=== PATIENT | female | born 1990 | race Caucasian/White ===

== ENCOUNTER 2023-02-24 17:54 | Inpatient (IN) | payer OTHER ==
[~2023-02-24] VITALS: Ht 162.6 cm; Wt 137.8 kg
--- NOTE | ~2023-02-24 | DS ---
[facility] [address] [place], [place] [address] Draft ADMISSION DATE: 02/26/2023 DISCHARGE DATE: 02/28/2023 REASON FOR ADMISSION: This morbidly obese 32-year-old white woman is accompanied by her . She presented to the emergency room and was evaluated late in the night by Dr. Goins and found to have tenderness at the umbilicus and non-reducible hernia. CT scan showed incarcerated fat at the umbilicus itself consistent with an incarcerated umbilical hernia. She had market tenderness, swelling and edema. She presented with subsided, but she still had nausea. She was noted to have an elevated white count of 13.3 and a urinalysis showing 12-20 rbc's in the urine, white cells 2-3 and squames 2+. She is admitted for further evaluation and care for incarcerated umbilical hernia as well as incidental finding of likely urinary tract infection. PERTINENT PHYSICAL EXAMINATION: GENERAL: Showed a morbidly obese white woman, who did not look systemically toxic. VITAL SIGNS: Showed a temperature 98.1, pulse 63, blood pressure 123/78. CHEST: Shows normal respiratory excursion. She did not have active wheezing. HEART: Regular without murmur. ABDOMEN: Obese, but soft. There is obvious umbilical hernia. There is marked tenderness on palpation, but no sign of cutaneous erythema. LABORATORY STUDIES: Showed a white count following morning of 8.9, hematocrit 39.4, platelets 234,000. Electrolytes normal. Beta HCG negative. Serology negative for COVID disease and urinalysis as previously noted suggestive of urinary tract infection. HOSPITAL COURSE: The patient was fluid resuscitated, given intravenous antibiotics on the basis of her probable urinary tract infection and underwent a late in the day on February 25 repair of incarcerated umbilical hernia. She was noted to have ischemic omentum, but was not infarcted. Repair consisted of excision of the herniated portion of omentum, closure of the hernia sac and implantation of Prolene mesh in an underlay technique with transverse closure of the fascia itself. At the time of extubation, she had a considerable amount of coughing and this likely related to her underlying extreme vaping habits as well as secondhand smoke, morbid obesity and of course distant history of asthma. She was surprisingly hypoxemic in the recovery room area, was given Decadron steroids by the core sucker, Gilberto Daniel. A chest x-ray, which was normal, but she did require a PATIENT NAME: JENNIFER RAYMOND DISCHARGE SUMMARY DATE OF : [birth year] REPORT #: [id number] PHYSICIAN: JONNA PARADA MD PCP: NO PRIMARY CARE PHYSICIAN REPORT IS CONFIDENTIAL AND NOT TO BE RELEASED WITHOUT AUTHORIZATION [facility] [address] [place], [place] [address] Draft non-rebreathing mask. She was transferred to the intensive care unit with postoperative hypoxemia. Consultation was undertaken with Dr. Perez, hospitalist, and additional support measures employed including at least one episode of diuresis with Lasix and supportive care. She did have a CPAP device, which was quite helpful to her. A CT scan was obtained at the request of Dr. Perez to assess for pulmonary embolism; there was no evidence of pulmonary embolism, but bilateral infiltrative changes likely accounting for her issue. She had no sign of pneumothorax or effusion. It was ultimately considered likely she had a so-called "negative pressure pulmonary edema," specifically with forced inspiration against a closed glottis at the time of extubation. She is maintained with supportive care primarily with full monitoring in the intensive care unit with supplemental oxygen, which was rapidly weaned down. By day of discharge, she is ambulating well, tolerating a regular diet, has minimal incisional pain and O2 saturations in the mid 90s on room air. She was noted to have some decreased saturations with deep sleep and she is considered likely to have probable obstructive sleep apnea in addition to what has gone before. The issue of asthma combined with the recent phenomena as well as ongoing vaping and exposure to secondhand tobacco smoke all could have contributed to the pulmonary issue. She is advised at discharge to lift no more than 10 pounds for the next four weeks. She will see me back in 4-6 weeks in the office and call on Wednesday to set up an appointment. She is permitted to shower. She will keep Steri-Strips on. No drain was placed. Therefore, none removed. DISCHARGE MEDICATIONS: Will include: 1. Ibuprofen 600 mg p.o. q.6 hours p.r.n. pain #30. 2. Percocet 7.5/325, one to two p.o. q.6 hours p.r.n. pain. 3. Tylenol plain 500 mg two tablets p.o. q.6 hours as needed for pain #60, no refill. Additionally, we will send home with a short duration antibiotic levofloxacin 500 mg p.o. daily on the basis of presumed urinary tract infection. Jonna Parada MD PATIENT NAME: JENNIFER RAYMOND DISCHARGE SUMMARY DATE OF : [birth year] REPORT #: [id number] PHYSICIAN: JONNA PARADA MD PCP: NO PRIMARY CARE PHYSICIAN REPORT IS CONFIDENTIAL AND NOT TO BE RELEASED WITHOUT AUTHORIZATION [facility] [address] [facility] [place] [address] Draft /JESSY /[id number] cc: MD Lokesh Steele MD [facility] Copies: ~ PATIENT NAME: JENNIFER RAYMOND DISCHARGE SUMMARY DATE OF : [birth year] REPORT #: [id number] PHYSICIAN: JONNA PARADA MD PCP: NO PRIMARY CARE PHYSICIAN REPORT IS CONFIDENTIAL AND NOT TO BE RELEASED WITHOUT AUTHORIZATION
[2023-02-24 19:52] LABS: BASOPHILS 0.2 % (0-2); EOSINOPHILS 0.4 % (0-6); HEMATOCRIT 43.4 % (35.0-50.0); HEMOGLOBIN 14.6 g/dL (12.0-18.0); LYMPHOCYTES 10.6 % (24-44); MCH 30.8 (27-36); MCHC 33.6 g/dl (30-36); MCV 91.8 fl (81-99); MONOCYTES 4.1 % (0-12); NEUTROPHILS 84.7 % (39-80); PLATELET COUNT 253 K/uL (140-440); RBC 4.73 M/ul (4.3-5.7); RDW 13.1 (10.5-15.0)
[2023-02-24 20:06] LABS: BILIRUBIN, TOTAL 0.3 ng/dL (0.2-1.0); BUN/CREATININE RATIO 13.68 (6.0-28.6); CALCIUM 9.5 mg/dL (8.5-10.1); CREATININE, SERUM 0.95 mg/dL (0.55-1.02)
[2023-02-24 20:34] LABS: BILIRUBIN, URINE NEGATIVE (negative); BLOOD/HGB, URINE MODERATE (Negative); KETONE, URINE NEGATIVE (Negative); LEUK ESTERASE, URINE NEGATIVE (negative); NITRITE, URINE NEGATIVE (negative)
[2023-02-24 20:39] LABS: EPITHELIAL CELLS, URINE SQUAMOUS 2+ /lpf (0-1+)
[2023-02-24 20:40] LABS: BACTERIA, URINE 3+ /hpf (negative); CASTS, URINE NONE SEEN \\lpf; CRYSTALS, URINE NONE SEEN (0-1+); REFLEX CULTURE, URINE No (No)
[2023-02-24 22:13] VITALS: BP 152/74
--- NOTE | 2023-02-24 22:15 | NUR ---
PT ADMITTED TO FLOOR FROM ER WITH A PERIUNBILICAL HERNIA WITH DR. PARADA. PT IS SCHEDULED TO HAVE SURGERY TOMORROW (02/25/23). PT NPO. REPORT RECEIVED AT BEDSIDE FROM OLDER ADULT SOCIAL WORK SPECIALIST. PT STABLE AT THIS TIME. BOWEL SOUNDS ARE HYPOACTIVE. VSS. PT INDEPENDENT IN ROOM. SAFETY PRECAUTIONS MAINTAINED. CALL LIGHT WITHIN REACH. WILL CONTINUE TO MONITOR.
[2023-02-25] VITALS (7 sets, daily range): BP systolic 115–129; BP diastolic 54–79
[2023-02-25 05:16] LABS: HEMOGLOBIN 13.2 g/dL (12.0-18.0)
[2023-02-25 05:18] LABS: BASOPHILS 0.7 % (0-2); EOSINOPHILS 0.9 % (0-6); HEMATOCRIT 39.4 % (35.0-50.0); LYMPHOCYTES 18.8 % (24-44); MCHC 33.6 g/dl (30-36); MCV 92.5 fl (81-99); MONOCYTES 5.8 % (0-12); NEUTROPHILS 73.8 % (39-80); PLATELET COUNT 234 K/uL (140-440); RBC 4.26 M/ul (4.3-5.7); RDW 13.1 (10.5-15.0)
[2023-02-25 05:31] LABS: ALBUMIN 3.3 g/dL (3.4-5.0); ALBUMIN/GLOBULIN RATIO 0.92 (1.1-2.4); ANION GAP 9.9 (7-21); BILIRUBIN, TOTAL 0.4 ng/dL (0.2-1.0); BUN/CREATININE RATIO 12.08 (6.0-28.6); CALCIUM 8.9 mg/dL (8.5-10.1); CREATININE, SERUM 0.91 mg/dL (0.55-1.02); MAGNESIUM 1.9 mg/dL (1.8-2.4); POTASSIUM 3.9 mmol/L (3.5-5.1); PROTEIN, TOTAL 6.9 g/dL (6.4-8.2)
--- NOTE | 2023-02-25 06:29 | NUR ---
PT RESTED WELL DURING THE SHIFT. PT DENIED ANY PAIN. PT WAS NAUSEOUS ONE TIME, ZOFRAN GIVEN. VSS. PT ABLE TO AMBULATE TO BATHROOM WITH GOOD OUPUT NOTED. PT NPO IN PREPARATION FOR HERNIA REPAIR TODAY. SAFETY PRECAUTIONS MAINTAINED. CALL LIGHT WITHIN REACH. WILL CONTINUE TO MONITOR.
--- NOTE | 2023-02-25 07:10 | NUR ---
REPORT RECEIVED FROM JESSA HUNT. PT RESTING IN BED ON RIGHT SIDE. EYES CLOSED RR EVEN AND UNLABORED. NO NEEDS IDENTIFIED AT THIS TIME. CALL LIGHT IN REACH.
--- NOTE | 2023-02-25 09:21 | NUR ---
IN TO ROUND ON PT. PT UP IN RECLINER. IV PUMP ALARMING, RESOLVED. IV FLUSHES WNL. ASSESSMENT COMPLETE. LUNG SOUNDS CLEAR. BOWEL TONES ACTIVE. PT REPORTS ABD TENDERNESS WITH PALPATION TO MID UPPER ABD. PT DENIES PAIN OTHERWISE. PT DENIES NUMBNESS OR TINGLING AT THIS TIME. PEDAL PULSES PALPABLE. PT DENIES ANY NEEDS AT THIS TIME. CALL LIGHT IN REACH. FAMILY IN ROOM.
--- NOTE | 2023-02-25 09:35 | NUR ---
patient sitting up in chair, family in room. vitals darshan&os charted. room tidied.
--- NOTE | 2023-02-25 10:09 | NUR ---
PT SITTING UP IN CHAIR. ON COUCH. EXERCISED MINISTRY. CONSENTED TO PRAYER. PRAYED FOR ONGOING HEALING AND CONTINUED BLESSING.
--- NOTE | 2023-02-25 10:16 | NUR ---
IN TO ROUND ON PT. PT UP IN RECLINER. PT ON PHONE. PROVIDED PT A CUP WITH NAME FRONT ATTENDANT IT TO PLACE HUSEYINLERY IN. PT VERBALIZES UNDERSTANDING. PT DENIES ANY OTHER NEEDS AT THIS TIME. CALL LIGHT IN REACH.
--- NOTE | 2023-02-25 10:34 | NUR ---
IN TO ANSWER CALL LIGHT. IV PUMP ALARMING, RESOLVED. ASSISTED PT WITH REMOVING EARRING. PT DENIES ANY OTHER NEEDS AT THIS TIME. CALL LIGHT IN REACH.
--- NOTE | 2023-02-25 11:39 | NUR ---
IN TO ROUND ON PT. PT UP IN RECLINER. PT DENIES ANY NEEDS AT THIS TIME. CALL LIGHT IN REACH.
--- NOTE | 2023-02-25 12:05 | NUR ---
MED REC COMPLETE
--- NOTE | 2023-02-25 12:15 | NUR ---
IN WITH DR. PARADA. DR. PARADA DISCUSSES PROCEDURE WITH PT. PT DENIES ANY NEEDS AT THIS TIME. CALL LIGHT IN REACH. PT UP IN BED. AT BEDSIDE.
--- NOTE | 2023-02-25 15:08 | NUR ---
IN TO ANSWER CALL LIGHT. IV PUMP ALARMING, NEW BAG OF FLUIDS STARTED, SEE MAR. ASSESSMENT COMPLETE. LUNG SOUNDS CLEAR. BOWEL TONES ACTIVE. PT REPORTS ABD TENDERNESS WITH PALPATION. PT DENIES PAIN OTHERWISE. PT DENIES ANY OTHER NEEDS AT THIS TIME. CALL LIGHT IN REACH.
--- NOTE | 2023-02-25 15:45 | NUR ---
Spoke with pt. She states she moved here from [place] two weeks ago. She is living in a camp trailer with her spouse. He is off work with [employer]. He will assist her as needed. They both drive. Pt in need of insurance, pcp, and pharmacy. Per pt she will have surgery tonight and possibly go home. She does not use any DME. She and spouse split recruitment consultant, shopping, and cooking. I will contact Aubree in Eligibility to assist pt with the [place] [employer], sent CM form to the physician clinic requesting a PCP as requested by pt, she would like to use [facility] for her pharmacy. Pt thinks she may go home tonight. She denies other needs or concerns.
--- NOTE | 2023-02-25 16:20 | NUR ---
PAIENTS PRESURGICAL [place]IPEDOWN COMPLETE, PATIENT ASSISTING. IN ROOM.
--- NOTE | 2023-02-25 16:35 | NUR ---
Chart emailed to the physician clinic for fu appt. Spoke with pt and Aubree was able to see her from eligibility.
[2023-02-25 21:44] LABS: BASOPHILS 0.4 % (0-2); EOSINOPHILS 0.1 % (0-6); HEMATOCRIT 44.3 % (35.0-50.0); HEMOGLOBIN 14.8 g/dL (12.0-18.0); LYMPHOCYTES 5.4 % (24-44); MCH 31.1 (27-36); MCHC 33.4 g/dl (30-36); MCV 93.1 fl (81-99); MONOCYTES 1.4 % (0-12); NEUTROPHILS 92.7 % (39-80); PLATELET COUNT 239 K/uL (140-440); RBC 4.76 M/ul (4.3-5.7); RDW 13.2 (10.5-15.0)
[2023-02-25 21:57] LABS: ALBUMIN 3.6 g/dL (3.4-5.0); ALBUMIN/GLOBULIN RATIO 0.9 (1.1-2.4); ANION GAP 12.8 (7-21); BILIRUBIN, TOTAL 0.6 ng/dL (0.2-1.0); BUN/CREATININE RATIO 12.38 (6.0-28.6); CALCIUM 9.1 mg/dL (8.5-10.1); CREATININE, SERUM 1.05 mg/dL (0.55-1.02); POTASSIUM 3.8 mmol/L (3.5-5.1); PROTEIN, TOTAL 7.6 g/dL (6.4-8.2)
--- NOTE | 2023-02-25 22:00 | NUR ---
PT ARRIVED TO FLOOR AROUND 2200 VIA WC, BONDERITE OPERATOR GAVE REPORT AT [facility], UMBILICAL INCISION IS DRESSED AND OVERED, DRESSING IS C/D/I, ABDOMEN IS SOFT AND TENDER, BT HYPOACTIVE, PT IS A&O, PT WALKED TO BED FROM , STEADY GAIT, SBA, PT STATES THAT PAIN IS 6/10 BUT TOLERABLE FOR HER, SHE IS CURRENTLY ON BIPAP, RT IN ROOM AND WILL TITRATE DOWN O2 PER PT NEEDS/TOLERABILITY, PT CURRENTLY SATING 100% AND TOLERATING BIPAP WELL, HOSPITALIST AND SURGEON WERE AT [facility] AND BOTH SPOKE WITH , CALL LIGHT WITHIN REACH AND CONTINUOUS MONITORING, WILL NOTIFY MD WITH ANY CHANGES IN PT STATUS
--- NOTE | 2023-02-25 22:43 | NUR ---
02/25/23 2243 Flori Potter 193- PT ARRIVES TO UNIT VIA STRETCHER FROM OR. STEFFEN JUAREZ AND 3 RN'S AT BEDSIDE. PT IS A&O AND ON 10L OF O2 VIA MASK. RESPIRATIONS ARE SHALLOW BUT EVEN AND UNLABORED. O2 <90% AT THIS TIME, PT ENCOURAGED TO TAKE DEEP BREATHS AND COUGH. PT COUGHS RED SPUTUM THAT IS SPAT UP INTO YANKAUER SUCTION. 1931- PT ON NRB MASK AT 10L OF O2 AND REPOSITIONED W/TEACHER INSTRUMENTAL AND 3 RN'S AT BEDSIDE FOR ASSIST. HOB RAISED TO 45 DEGREES AND PILLOW PROVIDED FOR STABILIZATION OF SURGICAL SITE WITH COUGHING, PT STATES VERBAL UNDERSTANDING AND FOLLOWS DIRECTION. PT REPORTS 10/10 PAIN AT THIS TIME BUT O2 <90%. 1933- STEFFEN JUAREZ PROVIDES PAIN MED (SEE BLUE SHEET). PT O2 >90% AT THIS TIME VIA 10L OF O2 VIA NRB MASK. PT RESPIRATIONS REMAIN SHALLOW BUT UNLABORED, NO SIGNS OF DISTRESS. PT REMAINS A&O. STATES SHE IS HOT AND SWEATY AT THIS TIME, COLD WASH CLOTH PROVIDED FOR PT COMFORT. 1937- PT EDUCATED ABOUT IMPORTANCE OF GOOD COUGHS AND ABDOMINAL SUPPORT, PT STATES VERBAL UNDERSTANDING AND CONTINUES TO COUGH AND TAKE DEEP BREATHS DIRECTED. 1943- TEACHER INSTRUMENTAL AT BEDSIDE FOR EDUCATION REGARDING PERSONAL LIFESTYLE CHOICES THAT MAY REFLECT LUNG CONDITION. PT CONTINUES TO COUGH UP BLOODY SPUTUM IN SMALL AMOUNTS AND SPIT IN SUCTION AT THIS TIME. PT REPORTS PAIN HAS NOT DECREASED. PT O2 MAINTAINS >90% AT THIS TIME VIA CONTINUOUS PULSE OX. 1949- STEFFEN JUAREZ AT BEDSIDE FOR BILAT TAP BLOCKS FOR PAIN CONTROL. 1999- STEVEN MALOUER IN PLACE D/T PT DIAPHORETIC AND HOT AT THIS TIME. PT STATES NO CHEST PAIN, DIZZINESS, OR SOB AT THIS TIME. RESPIRATIONS SHALLOW AND UNLABORED, NO SIGNS OF DISTRESS. 2003- PT O2 <90% AT THIS TIME, PT TITRATED FROM 10L OF O2 VIA NRB MASK TO 12L OF O2 VIA NRB MASK. O2 >90% VIA CONT PULSE OX AT THIS TIME. PT STATES PAIN IS DECREASING TO TOLERABLE LEVEL AT THIS TIME. PT HOB REMAINS ELEVATED. IV SITE WNL. SURGICAL SITE DRESSING HAS NO DRAINAGE AT THIS TIME. 2018- PT TITRATED TO 10L OF O2 VIA NRB FROM 12L OF O2 VIA NRB D/T O2 SATS >90% AT THIS TIME. PT CONTINUES TO COUGH AND DEEP BREATH W/OUT DIFFICULTY. PT REMAINS A&O. 2024- PT TITRATED TO 10L OF O2 VIA MASK FROM 10L OF O2 VIA NRB MASK. PT MAINTAINS >90% VIA CONTINUOUS PULSE OX AT THIS TIME. PT REPORTS PAIN IMPROVED TO A 7/10. O2 >90% AT THIS TIME. RESPIRATIONS EVEN AND UNLABORED, NO SIGNS OF PHYSICAL DISTRESS. 2029- VERBAL ORDER FOR DUONEB PER STEFFEN TEACHER INSTRUMENTAL. 2033- PT TITRATED TO 8L OF O2 VIA MASK D/T MAINTAINING O2 >90% AT THIS TIME. DUONEB VIA MASK (SEE EMAR). 2034- PT TITRATED BACK TO 10L OF O2 VIA MASK D/T O2 VIA PULSE OX <90% AT THIS TIME. PT IS A&O AND CONTINUES TO COUGH AND TAKE DEEP BREATHS. PT REPORTS PAIN HAS DECREASED TO 6/10 AND STATES THIS IS TOLERABLE AT THIS TIME. 2037- PT TITRATED TO 12L OF O2 VIA NRB MASK D/T O2 SATS DROPPING TO 80'S. RESPIRATIONS EVEN AND UNLABORED. PT REPORTS NO CHEST PAIN, DIZZINESS, OR SOB. PT CONTINUES TO TAKE DEEP BREATHS AND COUGH (BLOOD TINGED SPUTUM OF SMALL AMOUNTS). 2043- PT TITRATED TO 10L OF O2 VIA NRB D/T O2 SATS >90% AT THIS TIME. IMAGING AT BEDSIDE AT THIS TIME FOR CHEST XRAY ORDERED PER STEFFEN TEACHER INSTRUMENTAL.
[2023-02-26] VITALS (7 sets, daily range): BP systolic 100–127; BP diastolic 46–76
--- NOTE | 2023-02-26 | NUR ---
PT CALLED RN TO VOID, PT GOT UP TO BSC W/ SBA, HAD CONTINUOUS PULSE OX ON AND OPEN MASK AT 15L, PT DESATED TO 86%, WHEN PT RETURNED TO BED OXYGEN SATURATION RETURNED TO 90%, BIPAP WAS PUT BACK ON, PT C/O SEVERE ABDOMINAL PAIN AND PRN PAIN MEDICATION WAS GIVEN PER ORDERS, CONTINUOUSLY MONITORING
--- NOTE | 2023-02-26 01:31 | NUR ---
PT CALLED TO USE BSC, OPEN MASK W/ 15L WAS PLACED ON PT AND PT GOT UP TO USE BSC, O2 STAYED IN THE 90S WHILE GETTING UP AND AMBULATING TO BSC, O2 SATURATION REMAINS IN THE MID 90S, PT REQUESTED TO KEEP OPEN MASK ON AND LEAVE BIPAP OFF, CONTINUALLY MONITORING 02 SATURATION
[2023-02-26 05:31] LABS: BASOPHILS 0.2 % (0-2); EOSINOPHILS 0.1 % (0-6); HEMATOCRIT 40.8 % (35.0-50.0); HEMOGLOBIN 13.8 g/dL (12.0-18.0); LYMPHOCYTES 2.8 % (24-44); MCHC 33.8 g/dl (30-36); MCV 91.7 fl (81-99); MONOCYTES 1.8 % (0-12); NEUTROPHILS 95.1 % (39-80); PLATELET COUNT 234 K/uL (140-440); RBC 4.45 M/ul (4.3-5.7)
[2023-02-26 05:48] LABS: ALBUMIN 3.3 g/dL (3.4-5.0); ALBUMIN/GLOBULIN RATIO 0.87 (1.1-2.4); ANION GAP 12.2 (7-21); BILIRUBIN, TOTAL 0.6 ng/dL (0.2-1.0); BUN/CREATININE RATIO 15.62 (6.0-28.6); CALCIUM 8.7 mg/dL (8.5-10.1); CREATININE, SERUM 0.96 mg/dL (0.55-1.02); POTASSIUM 4.2 mmol/L (3.5-5.1); PROTEIN, TOTAL 7.1 g/dL (6.4-8.2)
--- NOTE | 2023-02-26 06:49 | NUR ---
NO SIGNIFICANT CHANGES OVER BALLET MASTER/MISTRESS, PT REMAINS ON 15L OXYMASK, SATS IN THE MID 90'S, PT WAS UP TO BSC MULTIPLE TIMES, SAT REMAINED IN THE LOW 90S WHILE MOVING TO BSC ON 15L OXYMASK, LUNGS SOUND COARSE, PT DENIES SOB BUT DOES FEEL CONGESTED, WILL DISCUSS POSSIBLE DIURESIS WITH AND ANEL TO MONITOR
--- NOTE | 2023-02-26 07:30 | NUR ---
REPORT RECEIVED FORM KELLY GERMAIN. PT RESTING IN BED WITH EYES CLOSED, RESP EVEN AND UNLABORED, SPO2 99% ON 15L OXYMASK.
--- NOTE | 2023-02-26 08:07 | NUR ---
DR RODRIGUEZ IN TO SEE PT, PLAN FOR THE DAY DISCUSSED, WILL ATTEMPT TITRATING O2 DOWN. OXYGEN SWITCHED OVER TO A NASAL CANNULA AT 5L/MIN AND SATS 92-98%, WILL DIP DOWN TO 85% ON ROOM AIR. IS WITH INSTRUCTION GIVEN TO PT. ALSO STATES OKAY FOR PT TO EAT, REGULAR BREAKFAST TRAY PROVIDED.
--- NOTE | 2023-02-26 08:28 | NUR ---
PATIENT AWAKE IN BED, AT BEDSIDE. BREAKFAST TRAY PROVIDED. WASHCLOTH PROVIDED FOR FACE AND HANDS. VITALS CHARTED. CALL LIGHT IN EASY REACH
--- NOTE | 2023-02-26 09:46 | NUR ---
PT AND APPEAR TO BE SLEEPING. DID NOT DISTURB. SAID SILENT PRAYER FOR HEALING FROM DOORWAY.
--- NOTE | 2023-02-26 11:06 | NUR ---
DR PARADA IN ROOM TO DISCUSS PLAN WITH PT. PT CURRENTLY ON 5L/NC, TURNED DOWN TO 3L/NC.
--- NOTE | 2023-02-26 12:35 | NUR ---
PT UP TO BATHROOM SBA THEN TO CHAIR TO SIT UP FOR A WHILE. STEADY ON FEET AND MOVING WELL. OXYGEN AT 2L/NC WHILE UP AND SPO2 DOWN TO 85% DURING THIS TIME. BACK UP TO 93% ONCE PT SITTING IN CHAIR. DENIES NEED FOR ANY MORE PAIN MEDICATION, NO REQUESTS AT THIS TIME.
--- NOTE | 2023-02-26 12:49 | NUR ---
PATIENT AWAKE IN BED, EATING LUNCH. VITALS AND I&OS CHARTED. PATIENT INTO BR WITH SBA FOR VOID, PATIENT TOLERATED THIS ACTIVITY WELL, O2 IN MID 80S WHILE WALKING. PATIENT INTO CHAIR AT THIS TIME, CALL LIGHT AND PERSONAL ITEMS IN EASY REACH
--- NOTE | 2023-02-26 13:59 | NUR ---
PT REMAINS UP IN CHAIR WITH SPO 2 96% ON 2L/NC.
--- NOTE | 2023-02-26 15:30 | NUR ---
PT GIVEN PAIN MEDS PER REQUEST, RATES ABD PAIN 8/10, GIVEN TWO TABS PERCOCET.
--- NOTE | 2023-02-26 16:00 | NUR ---
O2 WAS TITRATED DOWN TO ROOM AIR, PT WAS SITTING IN CHAIR AND USING IS. PT TOLERATED ROOM AIR FOR APPROX 45 MINUTES. O2 SATS DROPPED DOWN 84-85%, PT CALLED THEN TO STATE SHE WAS FEELING SHORT OF BREATH, STATES SHE MAY HAVE BEEN OVER USING THE IS. PLACED PT BACK ON 3L/NC AND SATS UP TO 95%.
--- NOTE | 2023-02-26 16:30 | NUR ---
PTS BROUGHT HER DINNER IN, O2 TURNED DOWN TO 2L/NC SATS ARE 98%.
--- NOTE | 2023-02-26 17:30 | NUR ---
PT OUT FOR A WALK WITH THIS RN, 3L/NC IN PLACE WITH SATS 90%, PT DOES GET SLIGHTLY SHORT OF BREATH. DR PARADA IN TO SEE PT, DISCUSSED PLAN WITH PT FOR HER TO STAY AND GIVE HER LUNGS TIME TO HEAL.
--- NOTE | 2023-02-26 18:00 | NUR ---
PT UP TO SHOWER WITH O2/3L IN PLACE. SATS 90% WITH THIS ACTIVITY.
--- NOTE | 2023-02-26 19:54 | NUR ---
RECEIVED REPORT FROM JESSA LOWERY, PT HAS BEEN WEANED DOWN TO 2L NC FOR THE MAJORITY OF THE DAY, PT DOES DESAT INTO THE MID 80S WITH ACTIVITY ON RA, WILL CONTNIUE TO WEAN OXYGEN DOWN TOLERATED BY PT AND ACTIVITY; IS CURRENTLY AT BEDSIDE, PT IS A&O, DENIES PAIN AT THIS TIME, VSS, CONTINUING TO MONITOR; WILL NOTIFY MD OF ANY CHANGES IN PT STATUS
--- NOTE | 2023-02-27 06:00 | NUR ---
PT RESTED ON AND OFF, C/O ABD PAIN FROM COUGHING AND ACTIVITY, PRN PAIN MEDICATION GIVEN PER ORDERS, PT O2 SATURATION HAS REMAINED IN THE 90'S WHILE IN BED ON 1.5L NC, PT DOES DESAT INTO THE LOW TO MID 80'S WITH ACTIVITY BUT DOES RECOVER FAIRLY QUICKLY, DENIES SOB AT THIS TIME, CONTINUALLY MONITORING
[2023-02-27 06:25] VITALS: BP 115/61
[2023-02-27 06:39] LABS: BASOPHILS 0.6 % (0-2); EOSINOPHILS 0.4 % (0-6); HEMOGLOBIN 12.4 g/dL (12.0-18.0); LYMPHOCYTES 13.8 % (24-44); MCH 31.1 (27-36); MCHC 33.7 g/dl (30-36); MCV 92.3 fl (81-99); MONOCYTES 5.1 % (0-12); NEUTROPHILS 80.1 % (39-80); PLATELET COUNT 210 K/uL (140-440); RDW 13.3 (10.5-15.0)
[2023-02-27 06:59] LABS: ALBUMIN 3.1 g/dL (3.4-5.0); ALBUMIN/GLOBULIN RATIO 0.86 (1.1-2.4); ANION GAP 11.7 (7-21); BILIRUBIN, TOTAL 0.4 ng/dL (0.2-1.0); BUN/CREATININE RATIO 15.53 (6.0-28.6); CALCIUM 8.5 mg/dL (8.5-10.1); CREATININE, SERUM 1.03 mg/dL (0.55-1.02); POTASSIUM 3.7 mmol/L (3.5-5.1); PROTEIN, TOTAL 6.7 g/dL (6.4-8.2)
--- NOTE | 2023-02-27 07:30 | NUR ---
REPORT RECEIVED FROM KELLY GERMAIN. PT IS RESTING IN BED ON 1.5L/NC WITH SPO2 92-93% AND RR 18.
--- NOTE | 2023-02-27 07:30 | NUR ---
REPORT RECEIVED FROM KELLY GERMAIN. PT IS AWAKE IN BED, DR RODRIGUEZ IN TO SEE PT, PT ON 1.5L/O2 WITH SPO2 94% AT REST.
--- NOTE | 2023-02-27 07:45 | NUR ---
DR RODRIGUEZ IN TO SEE PT, ORDERS NEB TX, RT IN TO DO NEB TX.
--- NOTE | 2023-02-27 07:47 | NUR ---
RT CALLED FOR NEB TX
[2023-02-27 08:55] VITALS: BP 114/53
--- NOTE | 2023-02-27 09:13 | NUR ---
PT UP TO AMBULATE IN THE HALLWAYS, WALKED FOR APPROX 5 MINUTES. TRIED ROOM AIR INITIALLY AND O2 SATURATIONS DROPPED DOWN TO 83% ALTHOUGH PT DENIED FEELING SHORT OF BREATH. TURNED OXYGEN ON TO 4L/NC AND SATS UP TO 90% WITH ACTIVITY. PT BROUGHT BACK TO ROOM, STATES HER BREATHING FEELS FINE ALTHOUGH SHE DOES LOOK SLIGHTLY SHORT OF BREATH. SATS 90% ON 4L WITH THIS ACTIVITY. HAD PT REST AND RECOVER APPROX ONE MINUTE AND THEN PLACED HER BACK ON ROOM AIR, NOW ON ROOM AIR SITTING UP IN THE CHAIR PTS SATURATIONS ARE 90% WITH RESP RATE 18 AND UNLABORED. HEART RATE WENT FROM 70'S AT REST TO 100'S DURING AMBULATION THEN BACK DOWN TO 80'S ONCE IN CHAIR. PT DENIES NEED FOR PAIN MEDICAITON AT THIS TIME. DOING INCENTIVE SPIROMETRY INSTRUCTED. CALL LIGHT IN REACH.
--- NOTE | 2023-02-27 10:15 | NUR ---
PT BACK TO BED STATES SHE IS TIRED AND WANTING TO NAP.
--- NOTE | 2023-02-27 10:30 | NUR ---
DR PARADA CAME BY TO SEE PT, PLAN TO CONT TO MONITOR PT, STATUS CHANGED TO MED SURG.
--- NOTE | 2023-02-27 10:44 | OR ---
[facility] [address], [place] [address] Signed DATE OF OPERATION: 02/25/2023 SURGEON: Jonna Parada MD PREOPERATIVE DIAGNOSES: 1. Incarcerated umbilical hernia with edematous fat. 2. Morbid obesity. BMI 52.1. POSTOPERATIVE DIAGNOSES: 1. Incarcerated umbilical hernia with ischemic omentum. 2. Morbid obesity. BMI 52.1. PROCEDURES: 1. Repair of incarcerated umbilical hernia defect less than 4 cm. 2. Implantation of Prolene mesh underlay technique. 3. Partial omental resection. ANESTHESIA: General endotracheal, Gilberto Domínguez, SALES AND MARKETING INTERN and local 10 mL of 0.25% Marcaine with epinephrine. INDICATIONS: A 32-year-old, morbidly obese, BMI 52.1, white woman presented to the emergency room late last night, was evaluated by Dr. Goins with exquisite tenderness in the umbilical area. There was a clinical finding of hernia. Given her tenderness, a CT scan was obtained. This showed no evidence of incarcerated hollow viscus, but did show fat with possible ischemic changes and edema. The patient has been fluid resuscitated, given intravenous antibiotics, parenteral pain medication. So forth, she is now to undergo repair of the hernia and possible resection of the fat as appropriate. The risk of bleeding, infection, recurrent hernia, and other unforeseen complications were reviewed in detail. She understands as does her and they wish to proceed. FINDINGS: Indeed herniated fat was noted. It was ultimately found to be portion of omentum. It did require resection that was infarcted per se. Repair consisted of implantation of Prolene mesh in the properitoneal space after developing the properitoneal space and securing the peritoneum itself. Transverse reapproximation of fascial layer was undertaken with Prolene and Prolene pledgets. She tolerated procedure well overall. DESCRIPTION OF PROCEDURE: Electronically Signed By: JONNA PARADA MD 02/27/23 1044 PATIENT NAME: JENNIFER RAYMOND OPERATIVE REPORT DATE OF : [birth year] REPORT #: [id number] PHYSICIAN: JONNA PARADA MD PCP: NO PRIMARY CARE PHYSICIAN REPORT IS CONFIDENTIAL AND NOT TO BE RELEASED WITHOUT AUTHORIZATION [facility] [address], [place] [address] Signed The patient was brought to the operating room, given a general endotracheal anesthetic. Preoperative antibiotic, Ancef had been given. Sequential compression device stockings used and heparin subcutaneously administered. After satisfactory general endotracheal anesthesia, the abdomen was prepared with chlorhexidine solution and draped sterilely. A curvilinear incision was made to the left of the umbilicus. Dissection was carried through the dermis and subcutaneous tissue with both sharp and electrocautery dissection. The herniated fat was not reducible still at that point. The hernia sac was freed from the overlying dermis of the umbilical skin isolating the hernia itself. The defect appeared to be less than 4 cm. Circumferential dissection of the hernia sac was undertaken, ultimately was opened and found to have incarcerated omentum. There was no sign of hollow viscus. Excision of the omentum was undertaken as the inflammatory process was such that reduction was excessively cumbersome and meddlesome in the final analysis. This left a hernia sac that had been transected circumferentially. The hernia sac edges were secured and using blunt and electrocautery dissection, the properitoneal space was developed circumferentially around the fascial defect. The hernia sac remnants were reapproximated with running 2-0 Vicryl. A circular piece of Prolene mesh was then secured in the properitoneal space with interrupted 0 Prolene sutures covering the defect well with overlap of at least 2 to 3 cm. The fascia was then reapproximated transversely with interrupted 0 Prolene with Prolene pledgets. A 10 mL of 0.25% Marcaine with epinephrine was injected locally. Luzma's layer was reapproximated with interrupted 2-0 Vicryl and skin closed with running subcuticular 3-0 Vicryl. Steri-Strips were applied as was an Acticoat dressing. The patient anticipates transfer from the operating room to recovery room in good condition. Blood loss was minimal. Jonna Parada MD JM/MODL /[id number] cc: Dr. Buster Electronically Signed By: JONNA PARADA MD 02/27/23 1044 PATIENT NAME: JENNIFER RAYMOND OPERATIVE REPORT DATE OF : [birth year] REPORT #: [id number] PHYSICIAN: JONNA PARADA MD PCP: NO PRIMARY CARE PHYSICIAN REPORT IS CONFIDENTIAL AND NOT TO BE RELEASED WITHOUT AUTHORIZATION [address] [address] Signed Copies: ~ Electronically Signed By: JONNA PARADA MD 02/27/23 1044 PATIENT NAME: JENNIFER RAYMOND OPERATIVE REPORT DATE OF : [birth year] REPORT #: [id number] PHYSICIAN: JONNA PARADA MD PCP: NO PRIMARY CARE PHYSICIAN REPORT IS CONFIDENTIAL AND NOT TO BE RELEASED WITHOUT AUTHORIZATION
--- NOTE | 2023-02-27 10:44 | HP ---
[facility] [address] [place], [place] [address] Signed ADMISSION DATE: 02/24/2023 REASON FOR ADMISSION: Incarcerated umbilical hernia, very symptomatic. HISTORY OF PRESENT ILLNESS: This morbidly obese 32-year-old white woman is accompanied by her . She presented to the emergency room where she was evaluated last night by Dr. Goins. She was found to have tenderness at the umbilicus and a nonreducible hernia. She had several episodes of vomiting and sensation of tearing in the upper abdomen previous to this. Her vomiting had subsided but she still had nausea. She presented to the emergency room and upon evaluation was noted to have tenderness in the umbilical area. A normal urinalysis was noted, but an elevated white count of 13.3 was noted. Urinalysis showed rbc's 12 to 20 in urine, white cells 2 to 3, squames 2+. CT scan showed edema within the fat containing umbilical hernia and fat strangulation likely and mild inflammatory stranding within the mesentery was noted. There was no sign of incarcerated bowel or sign of bowel obstruction. I was called about this and given her symptoms, recommended direct admit to the hospital, anticipating operative intervention. Currently, she still has some tenderness, but not as bad as before. She has had no surgical intervention in the area. She denies any prior pregnancies. ALLERGIES: She is noted to have allergy to sulfa medication as well as Motrin and amoxicillin. SOCIAL HISTORY: She is accompanied by her . She has no children. They live in [place], neither are working. REVIEW OF SYSTEMS: She denies any shortness of breath or chest pain. She had no dysphagia or dysuria. Denies any hematemesis or blood per rectum. PHYSICAL EXAMINATION: GENERAL: Morbidly obese white woman, who does not look systemically toxic. VITAL SIGNS: Showed a temperature of 98.1, pulse of 63, blood pressure 123/78. NECK: Trachea is midline. CHEST: Shows normal respiratory excursion. HEART: Regular. Electronically Signed By: JONNA PARADA MD 02/27/23 1044 PATIENT NAME: JENNIFER RAYMOND HISTORY AND PHYSICAL DATE OF : [birth year] REPORT #: [id number] PHYSICIAN: JONNA PARADA MD PCP: NO PRIMARY CARE PHYSICIAN REPORT IS CONFIDENTIAL AND NOT TO BE RELEASED WITHOUT AUTHORIZATION [facility] [address] [place], [place] [address] Signed ABDOMEN: Quite obese, but soft. There is an obvious umbilical hernia. There is marked tenderness on palpation. There is no erythema. EXTREMITIES: Showed no clubbing, cyanosis, or edema. LAB STUDIES: This morning showed white count normal at 8.9, hematocrit 39.4, platelets 234,000. Electrolytes are normal. Beta HCG was negative yesterday. Serology shows negative COVID. Urinalysis as previously noted, rbc's 12 to 20 per high-power field, white cells 2 to 3, bacteria 3+, squames 2+. ASSESSMENT: The patient has probably incidental urinary tract infection, which is under treatment at this time. She does have what appears to be incarcerated properitoneal fat and an umbilical hernia which is relatively small in size. Operative intervention would be appropriate to fix the hernia, resect the fat if appropriate or reduce it otherwise. The risk of bleeding, infection, recurrent hernia, and so forth were reviewed in detail. This is particularly apt considering her significant morbid obesity. Her BMI is currently 52.1. She understands all this and agrees to our plan. MD PRADEEP Reina/JESSY /[id number] cc: Dr. Goins Copies: ~ Electronically Signed By: JONNA PARADA MD 02/27/23 1044 PATIENT NAME: JENNIFER RAYMOND HISTORY AND PHYSICAL DATE OF : [birth year] REPORT #: [id number] PHYSICIAN: JONNA PARADA MD PCP: NO PRIMARY CARE PHYSICIAN REPORT IS CONFIDENTIAL AND NOT TO BE RELEASED WITHOUT AUTHORIZATION
--- NOTE | 2023-02-27 12:20 | NUR ---
LUNCH BROUGHT IN TO PT BUT SHE STATES SHE IS TIRED AND WANTS TO SLEEP. HAD BROUGHT IN HER DOGS TO SEE HER FOR A SHORT TIME, SHE HAD GOTTEN UP AND SAT ON THE COUCH FOR A WHILE TO PET HER DOGS. PT WAS ON ROOM AIR WITH SATS 87-94%.
--- NOTE | 2023-02-27 14:00 | NUR ---
PT RESTING WITH EYES CLOSED, ON ROOM AIR WITH SPO2 88-94$.
--- NOTE | 2023-02-27 15:20 | NUR ---
PT C/O ABDOMINAL PAIN, 2 TABS PERCOCET GIVEN.
[2023-02-27 16:21] VITALS: BP 120/53
--- NOTE | 2023-02-27 16:45 | NUR ---
PT BEING GIVEN NEB TX BY RT, STATES SHE DOES FEEL BETTER AFTER SHE GETS THEM. SATS 92% ON ROOM AIR.
--- NOTE | 2023-02-27 18:00 | NUR ---
NEW IV STARTED BY ASSOCIATE MATERIAL HANDLER. PTS DINNER BROUGHT IN THEN SHE AMBULATED UP TO BATHROOM. SATS DOWN TO 85% WHILE UP THEN QUICKLY BACK TO 92 ONCE SHE IS SITTING. DENIES FEELING SHORT OF BREATH.
--- NOTE | 2023-02-27 20:00 | NUR ---
RECEIVED REPORT FROM JESSA LOWERY, ALL QUESTIONS AND CONCERNS WERE ADDRESSED AT THIS TIME, PT IS A&O, VSS, PT CURRENTLY ON 1L NC, PAIN IS BEING MANAGED WITH PRN MEDS, CONTINUALLY MONITORING
[2023-02-28 00:06] VITALS: BP 112/55
[2023-02-28 06:00] VITALS: BP 127/64
--- NOTE | 2023-02-28 06:56 | NUR ---
PT DID WELL OVER PATROL CONDUCTOR, NO SIGNIFICANT CHANGES, PT CURRENTLY ON RA SATING IN THE 'S, PT IS UP AND HOPEFUL THAT SHE WILL BE ABLE TO BE DISCHARGED TODAY
[2023-02-28 08:00] VITALS: BP 110/68
--- NOTE | 2023-02-28 10:04 | NUR ---
PT ASSESSED AND FOUND TO BE SITTING IN HOSPITAL CHAIR WITH AT SIDE. PT IS AWAKE, ALERT AND ORIENTED X 4 WITH A GCS OF 15. PT IS SPEAKING IN FULL SENTANCES WITH NO RESPIRATORY DISTRESS NOTED. PTS RESPIRATIONS ARE NON-LABORED AND PT IS ON ROOM AIR AT THIS TIME. PT DENIES ANY PAIN/ DISCOMFORT. V/S ASSESSED AND SAFETY CHECK PERFORMED. PIV ASSESSED AND FOUND TO BE PATENT. PT WITH INITIAL SURGICAL DRESSING IN PLACE. SKIN SURROUNDING DRESSING APEPARS PWD. SURGICAL DRESSING IS INTACT. EDUCATION REGARDING BREATHING EXERCISES AND WOUND CARE PROVIDED. PT WITH NO QUESTIONS OR CONCERNS AT THIS TIME. NURSE CALL LIGHT AT PTS SIDE.
[2023-02-28 12:00] VITALS: BP 111/48
[2023-02-28] MEDS ORDERED: IBUPROFEN600 MG PO (13:40)
[2023-02-28] MEDS ORDERED: OXYCODON-ACETA1 EAC2 PO (13:40)
[2023-02-28] MEDS ORDERED: ACETAMINOPHEN500 MG PO (13:40)
[2023-02-28] MEDS ORDERED: LEVOFLOXACIN750 MG PO (13:54)
[2023-02-28 14:25] VITALS: BP 117/69
--- NOTE | 2023-02-28 14:30 | NUR ---
PT IS BEING DISCHARGED HOME. EDUCATION REGARDING INCISION SITE CARE, S/S OF INFECTION, AND NEED FOR F/U WITH PCP AND DR. PARADA PROVIDED. PT PROVIDED WT DR. PARADA OFFICE PHONE NUMBER TO SCHEDULE F/U APPOINTMENT. PIV REMOVED. PT SHOWERED AND DRESSED IN PERSONAL CLOTHES. INCISION SITE INSPECTED BY DR. PARADA. SKIN LOOKS PWD WITH NO SINGS OF INFECTION. PT ABLE TO PROVIDE FEEDBACK WITH HOSPITAL D/C INSTRUCTIONS. V/S ASSESSED AND PT ASSISTED TO WHEELCHAIR. PT TRANSFERRED TO [facility] WITH PERSONAL BELONGINGS. PT ABLE TO TRANSFER SELF TO [facility]. PT WITH NO QUESTIONS OR CONCERNS AT THIS TIME.
--- NOTE | 2023-03-02 11:53 | PATH ---
[facility] [address] [place], [place] [address] Signed SPECIMEN(S): A ISCHEMIC OMENTUM SPECIMEN SOURCE: A. ISCHEMIC OMENTUM CLINICAL HISTORY: Incarcerated umbilical hernia. FINAL PATHOLOGIC DIAGNOSIS: Ischemic omentum: - Benign fibroadipose and vascular tissue with focal vascular congestion, negative for atypical features or significant pathologic inflammation. JVR:[facility] MICROSCOPIC EXAMINATION: Histologic sections of all submitted blocks are examined by light microscopy. These findings, together with the gross examination, support the pathologic diagnosis. GROSS DESCRIPTION: The specimen, labeled and designated "Ankit, R," and designated on the requisition "ischemic omentum," is received in formalin and consists of a 5.5 x 5.5 x 2.6 cm pink membranous sac-like structure that contains yellow-brown multilobulated adipose tissue. Apricot Washer sections are submitted in (A1). FB (under the direct supervision of a pathologist) The Gross Description was prepared using a voice recognition system. The report was reviewed for accuracy; however, sound-alike word errors, addition and/or deletions may occur. If there is any question about this report, please contact Client Services. ADDITIONAL NOTES: Immunohistochemical and/or in situ hybridization studies if performed in this case included appropriate positive controls that reacted as expected. This test was developed and its performance characteristics determined by [facility]. It has not been cleared or approved by the U.S. Food and Drug Administration. The FDA has determined that such clearance or approval is not necessary. This test is used for clinical purposes. It should not be regarded as investigational or for research. [facility] is certified under the Clinical Laboratory Improvement PATIENT NAME: JENNIFER RAYMOND PATHOLOGY DATE OF : [birth year] REPORT #: [id number] PHYSICIAN: [facility] PCP: NO PRIMARY CARE PHYSICIAN REPORT IS CONFIDENTIAL AND NOT TO BE RELEASED WITHOUT AUTHORIZATION [facility] [address] [facility] [place] [place] [address] Signed Amendments of 1988 (CLIA) as qualified to perform high complexity clinical laboratory testing. PERFORMING LABORATORY: Technical component was performed by [facility], [address] [place] [address] (CLIA# [id number]). Professional interpretation was performed by [facility], [address] [place] [id number] (CLIA#: [id number]). Diagnostician: Reinaldo Grewal MD Pathologist Electronically Signed 03/02/2023 Copies: ~ PATIENT NAME: JENNIFER RAYMOND PATHOLOGY DATE OF : [birth year] REPORT #: [id number] PHYSICIAN: [facility] PCP: NO PRIMARY CARE PHYSICIAN REPORT IS CONFIDENTIAL AND NOT TO BE RELEASED WITHOUT AUTHORIZATION
== END 2023-02-28 14:35 | disposition home or self-care (01) | DRG 353 ==
LOC: ED 17:54 → MS 17:56 → CCU 02-25 21:19
PROVIDERS: Family Medicine; Internal Medicine; ADMIT Surgery; ATTEND Surgery
PROC: 0DBU0ZZ Excision of Omentum, Open Approach (ICD-10-PCS; 2023-02-25)
PROC: 5A09357 Assistance with Respiratory Ventilation, Less than 24 Consecutive Hours, Continuous Positive Airway Pressure (ICD-10-PCS; 2023-02-25)
PROC: 0WUF0JZ Supplement Abdominal Wall with Synthetic Substitute, Open Approach (ICD-10-PCS; principal; 2023-02-25 17:30)
DX: K42.0 Umbilical hernia with obstruction, without gangrene (principal); J96.01 Acute respiratory failure with hypoxia; N39.0 Urinary tract infection, site not specified; Z68.43 Body mass index [BMI] 50.0-59.9, adult; J81.1 Chronic pulmonary edema; K66.8 Other specified disorders of peritoneum; K43.6 Other and unspecified ventral hernia with obstruction, without gangrene; J45.909 Unspecified asthma, uncomplicated; E66.01 Morbid (severe) obesity due to excess calories; Z99.81 Dependence on supplemental oxygen; M32.9 Systemic lupus erythematosus, unspecified; Z88.2 Allergy status to sulfonamides; Z88.1 Allergy status to other antibiotic agents; Z88.8 Allergy status to other drugs, medicaments and biological substances; Z20.822 Contact with and (suspected) exposure to COVID-19; Z79.51 Long term (current) use of inhaled steroids; Z79.899 Other long term (current) drug therapy
CPT/HCPCS: 00750; 36415; 71045; 71260; 74177; 80053; 81001; 83690; 83735; 84703; 85025; 85060; 94640; 94660; 94762; C9803; J0131; J0690; J1100; J1644; J1790; J1885; J1956; J2001; J2270; J2405; J2704; J2795; J3010; J3475; J3490; J7121; Q9967; U0002

== ENCOUNTER 2024-09-24 11:14 | Emergency (ER) | payer OTHER ==
[~2024-09-24] VITALS: Ht 162.6 cm; Wt 125.0 kg
[~2024-09-24 11:14] MED LIST: ACETAMINOPHEN500 MG PO; CYCLOBENZAPRINE10 MG PO; IBUPROFEN600 MG PO; LEVOFLOXACIN750 MG PO; LIDODERM1 EACH TOP; METFORMIN HCL500 MG PO; ONDANSETRON ODT4 MG PO; OXYCODON-ACETA1 EAC2 PO; TAMIFLU75 MG PO
[2024-09-24] MEDS ORDERED: DULOXETINE HCL30 MG PO (11:24)
[2024-09-24] MEDS ORDERED: HYDROXYCHLOROQ200 MG PO (11:24)
[2024-09-24] MEDS ORDERED: HYDROXYZINE HCL25 MG PO (11:24)
[2024-09-24] MEDS ORDERED: LEVOTHYROXINE25 MCG PO (11:24)
[2024-09-24] MEDS ORDERED: ondansetron HCL 4 MG/2 ML VIAL IV ONE (11:30)
[2024-09-24 11:37] LABS: BASOPHILS 0.5 % (0-2); HEMATOCRIT 45.6 % (35.0-50.0); LYMPHOCYTES 26.4 % (24-44); MCH 31.8 (27-36); MCV 90.9 fl (81-99); MONOCYTES 6.2 % (0-12); NEUTROPHILS 64.9 % (39-80); PLATELET COUNT 253 K/uL (140-440); RBC 5.02 M/ul (4.3-5.7); RDW 12.9 (10.5-15.0)
[2024-09-24] MEDS ORDERED: SODIUM CHLORIDE 0.9% 1,000 ML IV ONE (11:45)
[2024-09-24] MEDS ORDERED: PANTOPRAZOLE SODIUM 40 MG/10 ML VIAL IV ONE (11:45)
[2024-09-24 11:52] LABS: ALBUMIN 4.3 g/dL (3.4-5.0); ALBUMIN/GLOBULIN RATIO 1.13 (1.1-2.4); BILIRUBIN, TOTAL 0.6 mg/dL (0.2-1.0); BUN/CREATININE RATIO 13.59 (6.0-28.6); CALCIUM 9.7 mg/dL (8.5-10.1); CREATININE, SERUM 1.03 mg/dL (0.55-1.02); MAGNESIUM 2.1 mg/dL (1.8-2.4); PROTEIN, TOTAL 8.1 g/dL (6.4-8.2)
[2024-09-24] MEDS ORDERED: droPERidol 5 MG/2 ML VIAL IV ONE (12:15)
[2024-09-24 13:17] LABS: BILIRUBIN, URINE NEGATIVE (negative); BLOOD/HGB, URINE TRACE-I (Negative); KETONE, URINE SMALL (Negative); LEUK ESTERASE, URINE NEGATIVE (negative); NITRITE, URINE NEGATIVE (negative)
[2024-09-24 13:22] LABS: EPITHELIAL CELLS, URINE SQUAMOUS 3+ /lpf (0-1+)
[2024-09-24 13:23] LABS: BACTERIA, URINE 2+ /hpf (negative); CASTS, URINE NONE SEEN \\lpf; COLLECTION TYPE, URINE CLEAN CATCH; CRYSTALS, URINE AMORPHOUS PHOSPH 2+ (0-1+); RED BLOOD CELLS, URINE 0-1 /hpf (0-5); REFLEX CULTURE, URINE No (No)
[2024-09-24] MEDS ORDERED: PROCHLORPERAZIN10 MG PO (13:57)
[2024-09-24] MEDS ORDERED: ONDANSETRON ODT8 MG PO (13:57)
--- NOTE | 2024-09-24 13:58 | EKG ---
[facility] [address] [facility] [place], [place] [address] Signed Normal sinus rhythm with sinus arrhythmia Normal ECG No previous ECGs available Confirmed by Hortensia Castillo MD ([id number]) on 09/24/2024 1:57:47 PM Electronically Signed By: HORTENSIA CASTILLO MD 09/24/24 1358 PATIENT NAME: JENNIFER RAYMOND Electrocardiogram DATE OF : [birth year] PHYSICIAN: HORTENSIA CASTILLO MD REPORT #: [id number] REPORT IS CONFIDENTIAL AND NOT TO BE RELEASED WITHOUT AUTHORIZATION
[2024-09-24 14:00] VITALS: BP 165/95
[2024-09-26] MEDS ORDERED: REGLAN10 MG PO (11:59)
== END 2024-09-24 14:00 | disposition home or self-care (01) ==
LOC: ED 11:14
PROVIDERS: Emergency Medicine
DX: K29.00 Acute gastritis without bleeding (principal); Z88.2 Allergy status to sulfonamides; Z88.0 Allergy status to penicillin; Z88.6 Allergy status to analgesic agent; Z79.890 Hormone replacement therapy; Z79.899 Other long term (current) drug therapy
CPT/HCPCS: 36415; 80053; 81001; 83690; 83735; 84703; 85025; 93005; 93010; 96361; 96374; 96375; 99285-25; J1790; J2405; J2470; J7030

== ENCOUNTER 2025-01-06 11:35 | Emergency (ER) | payer OTHER ==
[~2025-01-06] VITALS: Ht 162.6 cm; Wt 119.8 kg
[~2025-01-06 11:35] MED LIST changes: +DULOXETINE HCL30 MG PO; +HYDROXYCHLOROQ200 MG PO; +HYDROXYZINE HCL25 MG PO; +LEVOTHYROXINE25 MCG PO; +ONDANSETRON ODT8 MG PO; +PROCHLORPERAZIN10 MG PO; +REGLAN10 MG PO
--- OUTSIDE RECORDS SUMMARY | 2025-01-06 11:42 | XMS ---
PreManage Notification: JENNIFER RAYMOND Security Photonics Technician Events No recent Security Events currently on file CRITERIA MET - [facility] - 2 Visits in 30 Days CARE PROVIDERS -, [facility]ist: Scientific Laboratory Supervisor Current [place] PHONE: [phone] -[place]- Dentist: Scientific Laboratory Supervisor Current [facility] PHONE: [phone] [facility]: [facility] FAMILY PHONE: [phone] DEMARCUS BAILEY Physician Math Tutor Current PHONE: [phone] Jorge has no Care Guidelines for this patient. [place] VISIT COUNT (12 MO.) 4 JACKIE Barboza TOTAL 4 NOTE: Visits indicate total known visits. ED/UCC VISIT TRACKING (12 MO.) 01/06/2025 11:36 [facility] [place] TYPE: Emergency COMPLAINT: - NAUSEA,VOMITING 01/05/2025 20:47 [facility] [place] TYPE: Emergency COMPLAINT: - VOMITING 09/26/2024 07:44 [facility] [place] TYPE: Emergency COMPLAINT: - VOMITING DIAGNOSES: - Allergy status to analgesic agent - Allergy status to penicillin - Allergy status to sulfonamides - Hormone replacement therapy - Nausea with vomiting, unspecified - Obstructive sleep apnea (adult) (pediatric) - Other intermediate (current) drug therapy - Viral intestinal infection, unspecified 09/24/2024 11:15 [facility] [place] TYPE: Emergency COMPLAINT: - DIZZY, VOMITING DIAGNOSES: - Acute gastritis without bleeding - Allergy status to analgesic agent - Allergy status to penicillin - Allergy status to sulfonamides - Hormone replacement therapy - Other watermelon inspector (current) drug therapy - Vomiting, unspecified INPATIENT VISIT TRACKING (12 MO.) No inpatient visits to display in this time frame [email or web address]
[2025-01-06] MEDS ORDERED: HALOPERIDOL LACTATE 5 MG/ML VIAL IM ONE (12:00)
[2025-01-06] MEDS ORDERED: SODIUM CHLORIDE 0.9% 1,000 ML IV ONE (12:00)
[2025-01-06 12:20] LABS: BASOPHILS 0.1 % (0.1-1.2); EOSINOPHILS 0.1 % (0.7-5.8); LYMPHOCYTES 10.2 % (19.3-51.7); MCH 31.5 PG (25.6-32.2); MCHC 35.4 g/dL (32.2-35.5); MCV 88.8 fL (79.4-94.8); MONOCYTES 5.2 % (4.7-12.5); NEUTROPHILS 83.9 % (34.0-71.1); RBC 4.64 M/uL (3.93-5.22)
[2025-01-06 12:38] LABS: ALT (SGPT) 27.0 U/L (14-59); AST (SGOT) 27.0 U/L (15-37); GLOMERULAR FILTRATION RATE,EST 76.0 mL/min (>60); PROTEIN, TOTAL 7.8 g/dL (6.4-8.2); UREA NITROGEN 16.0 mg/dL (7-18)
[2025-01-06 13:30] LABS: BLOOD/HGB, URINE LARGE (Negative); KETONE, URINE SMALL (Negative); LEUK ESTERASE, URINE TRACE (negative); NITRITE, URINE NEGATIVE (negative)
[2025-01-06 13:36] LABS: EPITHELIAL CELLS, URINE SQUAMOUS 1+ /lpf (0-1+)
[2025-01-06 13:37] LABS: BACTERIA, URINE RARE /hpf (negative); CASTS, URINE NONE SEEN \\lpf; CRYSTALS, URINE NONE SEEN (0-1+); REFLEX CULTURE, URINE No (No)
[2025-01-06 14:34] VITALS: BP 113/88
== END 2025-01-06 14:30 | disposition home or self-care (01) ==
LOC: ED 11:35
PROVIDERS: Emergency Medicine
DX: R11.2 Nausea with vomiting, unspecified (principal); Z79.899 Other long term (current) drug therapy; Z88.0 Allergy status to penicillin; Z88.6 Allergy status to analgesic agent; Z88.2 Allergy status to sulfonamides; G43.909 Migraine, unspecified, not intractable, without status migrainosus
CPT/HCPCS: 36415; 80053; 81001; 83690; 84703; 85025; 96374; 99284-25; J1200; J1630; J7030

== ENCOUNTER 2025-01-11 12:29 | Emergency (ER) | payer OTHER ==
[~2025-01-11] VITALS: Ht 162.6 cm; Wt 119.8 kg
--- OUTSIDE RECORDS SUMMARY | 2025-01-11 12:37 | XMS ---
PreManage Notification: JENNIFER RAYMOND Security Smoke Eater Events No recent Security Events currently on file CRITERIA MET - [facility] - 2 Visits in 30 Days CARE PROVIDERS -, [facility]ist: Cereal Supervisor Current [place] PHONE: [phone] -[place]- Dentist: Cereal Supervisor Current [facility] PHONE: [phone] [facility]/[place]: [facility] FAMILY PHONE: [phone] DEMARCUS BAILEY Physician Chief Of Safety And Protection Current PHONE: [phone] Jorge has no Care Guidelines for this patient. [place] VISIT COUNT (12 MO.) 5 JACKIE Barboza TOTAL 5 NOTE: Visits indicate total known visits. ED/UCC VISIT TRACKING (12 MO.) 01/11/2025 12:30 [facility] [place] TYPE: Emergency COMPLAINT: - SHORTNESS BREATH 01/06/2025 11:36 [facility] [place] TYPE: Emergency COMPLAINT: - NAUSEA,VOMITING DIAGNOSES: - Allergy status to analgesic agent - Allergy status to penicillin - Allergy status to sulfonamides - Migraine, unspecified, not intractable, without status migrainosus - Nausea with vomiting, unspecified - Other long-term (current) drug therapy 01/05/2025 20:47 [facility] [place] TYPE: Emergency COMPLAINT: - VOMITING 09/26/2024 07:44 [facility] [place] TYPE: Emergency COMPLAINT: - VOMITING DIAGNOSES: - Allergy status to analgesic agent - Allergy status to penicillin - Allergy status to sulfonamides - Hormone replacement therapy - Nausea with vomiting, unspecified - Obstructive sleep apnea (adult) (pediatric) - Other long-term (current) drug therapy - Viral intestinal infection, unspecified 09/24/2024 11:[address] [facility] [place] TYPE: Emergency COMPLAINT: - DIZZY, VOMITING DIAGNOSES: - Acute gastritis without bleeding - Allergy status to analgesic agent - Allergy status to penicillin - Allergy status to sulfonamides - Hormone replacement therapy - Other rn long term care (current) drug therapy - Vomiting, unspecified INPATIENT VISIT TRACKING (12 MO.) No inpatient visits to display in this time frame [email or web address]
[2025-01-11 13:27] LABS: ALT (SGPT) 28.0 U/L (14-59); AST (SGOT) 15.0 U/L (15-37); GLOMERULAR FILTRATION RATE,EST 73.0 mL/min (>60); PROTEIN, TOTAL 8.0 g/dL (6.4-8.2); UREA NITROGEN 9.0 mg/dL (7-18)
[2025-01-11 13:28] LABS: BASOPHILS 0.4 % (0.1-1.2); EOSINOPHILS 0.9 % (0.7-5.8); LYMPHOCYTES 16.7 % (19.3-51.7); MCH 31.6 PG (25.6-32.2); MCHC 35.1 g/dL (32.2-35.5); MCV 90.1 fL (79.4-94.8); MONOCYTES 4.8 % (4.7-12.5); NEUTROPHILS 76.8 % (34.0-71.1); RBC 5.06 M/uL (3.93-5.22)
[2025-01-11] MEDS ORDERED: HALOPERIDOL LACTATE 5 MG/ML VIAL IV ONE (13:30)
[2025-01-11] MEDS ORDERED: SODIUM CHLORIDE 0.9% 1,000 ML IV PRN (14:15)
[2025-01-11] MEDS ORDERED: POTASSIUM CHLORIDE 20 MEQ/15 ML CUP PO ONE (14:30)
[2025-01-11 16:24] VITALS: BP 149/86
== END 2025-01-11 16:27 | disposition home or self-care (01) ==
LOC: ED 12:29
PROVIDERS: Emergency Medicine
DX: R11.2 Nausea with vomiting, unspecified (principal); Z88.2 Allergy status to sulfonamides; Z88.8 Allergy status to other drugs, medicaments and biological substances
CPT/HCPCS: 36415; 80053; 85025; 96361; 96374; 96375; 96376; 99284-25; A9270; J1200; J1630; J2405; J7030

== ENCOUNTER 2025-04-11 08:08 | Emergency (ER) | payer OTHER ==
[~2025-04-11] VITALS: Ht 162.6 cm; Wt 127.1 kg
--- OUTSIDE RECORDS SUMMARY | ~2025-04-11 | XMS | Continuity of Care Document ---
Demographics + + + | Address | [address] | | | [place] [address] | + + + | Preferred Language | Unknown | + + + | Marital Status | | + + + | Jehovah'S Witness Affiliation | Unknown | + + + | Race | White | + + + | Ethnic Group | Not or | + + + Author + + + | Author | [facility] | + + + | Organization | [facility] | + + + | Address | [address] | | | [place] [address] | + + + | Phone | | + + + Care Team Providers + + + + | Care Ropeman Name | Role | Phone | + + + + Unavailable | Unavailable | + + + + Unavailable | Unavailable | + + + + Allergies and Intolerances + + + + + + | date | description | facility | reaction | severity | + + + + + + | 2025-01-11 | Amoxicillin | [facility] | Abdominal | Mild | | 00:00 | | [facility] | | | + + + + + + | 2025-01-11 | Ibuprofen | [facility] - | Abdominal | Mild | | 00:00 | | [facility] | | | + + + + + + | 2025-01-11 | Ibuprofen | [facility] - | Abdominal | Mild | | 00:00 | | [facility] | | | + + + + + + | 2025-01-11 | Amoxicillin | [facility] | Abdominal | Mild | | 00:00 | | [facility] | | | + + + + + + | 2025-01-11 | Amoxicillin | [facility] - | Abdominal | Mild | | 00:00 | | [facility] | | | + + + + + + | 2025-01-11 | UNK | [facility] - | (no reaction) | Mild | | 00:00 | | [facility] | | | + + + + + + | 2025-01-11 | Ibuprofen | [facility] - | Abdominal | Mild | | 00:00 | | [facility] | | | [facility] | | | + + + + + + Encounters No information. Functional Status No information. Immunizations No information. Medications + + + + | date | description | facility | + + + + | (no date) | DULOX[facility] HCL | [facility] | | | [facility] | + + + + | (no date) | LEVOTHYROXINE SODIUM | [facility] | | | | [facility] | + + + + | (no date) | HYDROXYCHLOROQUINE SULFATE | [facility] | | | | [facility] | + + + + | (no date) | hydrOXYzine HCL | [facility] | | | | [facility] | + + + + Problems + + + + | date | description | facility | + + + + | 2025-01-11 00:00 | Vomiting | [facility] | | | | [facility] | + + + + Procedures No information. Results/Labs +--------+--------+ +---------+--------+---------+ | test | date | facility | value | unit | notes | +--------+--------+ +---------+--------+---------+ + + | Result panel 1 | + + + + + +-------+---------+ + | Glucose | 2025-01-11 | | 128 | mg/dL | (missing) | | [facility] | 12:41:07 | [facility] | | | | + + + +-------+---------+ + + + | Result panel 2 | + + + + + +-----+---------+ + | BUN | 2025-01-11 | | 9 | mg/dL | (missing) | | [facility] | 12:41:07 | [facility] | [facility] | | | | + + + +-----+---------+ + + + | Result panel 3 | + + + + + +--------+---------+ + | Creat | 2025-01-11 | | 1.04 | mg/dL | (missing) | | [facility]-m[facility]nc | 12:41:07 | [facility] | | | | + + + +--------+---------+ + + + | Result panel 4 | + + + + + +------+ + + | eGFRcr | 2025-01-11 | | 73 | (missing) | (missing) | | SerPlBld | 12:41:07 | [facility] | | | | | CKD-EPI 2020 | [facility] | | | | + + + +------+ + + + + | Result panel 5 | + + + + + +--------+ + + | BUN/Creat | 2025-01-11 | | 8.65 | (missing) | (missing) | | SerPl | 12:41:07 | [facility] | | | | + + + +--------+ + + + + | Result panel 6 | + + + + + +-------+ + + | Sodium | 2025-01-11 | | 139 | (missing) | (missing) | | SerPl-s[facility]nc | 12:41:07 | [facility] | [facility] | | | | + + + +-------+ + + + + | Result panel 7 | + + + + + +-------+ + + | Potassium | 2025-01-11 | | 3.2 | (missing) | (missing) | | SerPl-s[facility]nc | 12:41:07 | [facility] | | | | + + + +-------+ + + + + | Result panel 8 | + + + + + +-------+ + + | Chloride | 2025-01-11 | | 104 | (missing) | (missing) | | SerPl-s[facility]nc | 12:41:07 | [facility] | | | | + + + +-------+ + + + + | Result panel 9 | + + + + + +------+ + + | CO2 | 2025-01-11 | | 23 | (missing) | (missing) | | [facility] | 12:41:07 | [facility] | | | [facility] | | | | + + + +------+ + + + + | Result panel 10 | + + + + + +--------+ + + | Anion Gap | 2025-01-11 | | 15.2 | (missing) | (missing) | | SerPl | 12:41:07 | [facility] | | | | | Calculated.4 | | [facility] | [facility] | | | | + + + +--------+ + + + + | Result panel 11 | + + + + + +-------+---------+ + | Calcium | 2025-01-11 | | 9.3 | mg/dL | (missing) | | SerPl-mCnc | 12:41:07 | [facility] | [facility] | | | | + + + +-------+---------+ + + + | Result panel 12 | + + + + + +-------+ + + | Prot | 2025-01-11 | | 8.0 | (missing) | (missing) | | [facility] | 12:41:07 | [facility] | | | | + + + +-------+ + + + + | Result panel 13 | + + + + + +-------+ + + | Albumin | 2025-01-11 | | 4.6 | (missing) | (missing) | | [facility] | 12:41:07 | [facility] | | | | + + + +-------+ + + + + | Result panel 14 | + + + + + +-------+ + + | Globulin | 2025-01-11 | | 3.4 | (missing) | (missing) | | Ser-mCnc | 12:41:07 | [facility] | | | | + + + +-------+ + + + + | Result panel 15 | + + + + + +--------+ + + | | 2025-01-11 | | 1.35 | (missing) | (missing) | | Albumin/Glob | 12:41:07 | [facility] | | | | | [facility] | [facility] | | | | + + + +--------+ + + + + | Result panel 16 | + + + + + +-------+---------+ + | Bilirub | 2025-01-11 | | 0.8 | mg/dL | (missing) | | SerPl-mCnc | 12:41:07 | [facility] | | | | + + + +-------+---------+ + + + | Result panel 17 | + + + + + +------+ + + | AST | 2025-01-11 | | 15 | (missing) | (missing) | | SerPl-cCnc | 12:41:07 | [facility] | | | | + + + +------+ + + + + | Result panel 18 | + + + + + +------+ + + | ALT | 2025-01-11 | | 28 | (missing) | (missing) | | [facility] | 12:41:07 | [facility] | | | | + + + +------+ + + + + | Result panel 19 | + + + + + +------+ + + | ALP | 2025-01-11 | | 66 | (missing) | (missing) | | SerPl-cCnc | 12:41:07 | [facility] | | | | + + + +------+ + + + + | Result panel 20 | + + + + + +---------+ + + | WBC # Bld | 2025-01-11 | | 11.39 | (missing) | (missing) | | Auto | 13:01:07 | [facility] | | | | + + + +---------+ + + + + | Result panel 21 | + + + + + +--------+ + + | Lymphocytes | 2025-01-11 | | 16.7 | (missing) | (missing) | | NFr Bld | 13:01:07 | [facility] | | | | | Auto | | [facility] | | | | + + + +--------+ + + + + | Result panel 22 | + + + + + +-------+ + + | Monocytes | 2025-01-11 | | 4.8 | (missing) | (missing) | | NFr Bld Auto | 13:01:07 | [facility] | | | | + + + +-------+ + + + + | Result panel 23 | + + + + + +-------+ + + | Eosinophil | 2025-01-11 | | 0.9 | (missing) | (missing) | | NFr Bld Auto | 13:01:07 | [facility] | | | | + + + +-------+ + + + + | Result panel 24 | + + + + + +-------+ + + | Basophils | 2025-01-11 | | 0.4 | (missing) | (missing) | | NFr Bld Auto | 13:01:07 | [facility] | | | | + + + +-------+ + + + + | Result panel 25 | + + + + + +--------+ + + | RBC # Bld | 2025-01-11 | | 5.06 | (missing) | (missing) | | Auto | 13:01:07 | [facility] | | | | + + + +--------+ + + + + | Result panel 26 | + + + + + +--------+ + + | Hgb | 2025-01-11 | | 16.0 | (missing) | (missing) | | Bld-mCnc | 13:01:07 | [facility] | | | | + + + +--------+ + + + + | Result panel 27 | + + + + + +--------+ + + | Hct VFr.DF | 2025-01-11 | | 45.6 | (missing) | (missing) | | Bld Auto | 13:01:07 | [facility] | | | | + + + +--------+ + + + + | Result panel 28 | + + + + + +--------+ + + | RBC Auto | 2025-01-11 | | 90.1 | (missing) | (missing) | | | 13::07 | [facility] | | | | + + + +--------+ + + + + | Result panel 29 | + + + + + +--------+ + + | MCH RBC Qn | 2025-01-11 | | 31.6 | (missing) | (missing) | | Auto | 13:01:07 | [facility] | | | | + + + +--------+ + + + + | Result panel 30 | + + + + + +--------+ + + | MCHC RBC | 2025-01-11 | | 35.1 | (missing) | (missing) | | Auto-EntMCnc | 13:01:07 | [facility] | | | | + + + +--------+ + + + + | Result panel 31 | + + + + + +-------+ + + | Platelet # | 2025-01-11 | | 306 | (missing) | (missing) | | Bld Auto | 13:01:07 | [facility] | | | | + + + +-------+ + + + + | Result panel 32 | + + + + + +--------+ + + | Neutrophils | 2025-01-11 | | 76.8 | (missing) | (missing) | | NFr Bld | 13:01:07 | [facility] | | | | | Auto | [facility] | | | | + + + +--------+ + + Social History + + + + | date | description | facility | + + + + | (no date) | Unknown if ever smoked | [facility] | + + + + Vital Signs + + + +---------+ | date | measurement | value | units | + + + +---------+ | 2025-01-11 00:00 | BMI | 45.3 | kg/m2 | + + + +---------+ | 2025-01-11 00:00 | BP_diastolic | 86 | mmHg | + + + +---------+ | 2025-01-11 00:00 | BP_systolic | 149 | mmHg | + + + +---------+ | 2025-01-11 00:00 | heart_rate | 69 | /min | + + + +---------+ | 2025-01-11 00:00 | height_metric | 162.56 | cm | + + + +---------+ | 2025-01-11 00:00 | height_standard | 64 | in | + + + +---------+ | 2025-01-11 00:00 | o2_saturation | 98 | % | + + + +---------+ | 2025-01-11 00:00 | respiration_rate | 18 | /min | + + + +---------+ | 2025-01-11 00:00 | temperature_metric | 36.94 | C | | | | | | + + + +---------+ | 2025-01-11 00:00 | | 98.5 | F | | | temperature_standar | | | | | d | | | + + + +---------+ | 2025-01-11 00:00 | weight_metric | 119.8 | kg | + + + +---------+ | 2025-01-11 00:00 | weight_standard | 264.11 | lb | + + + +---------+"
--- OUTSIDE RECORDS SUMMARY | 2025-04-11 08:10 | XMS ---
PreManage Notification: JENNIFER RAYMOND Security Documentation Lead Events No recent Security Events currently on file CRITERIA MET - Group Notification CARE PROVIDERS -, [facility]ist: Slubber Operator Current [place] PHONE: [phone] -[place]- Dentist: Slubber Operator Current [facility] PHONE: [phone] [facility]/[place]: [facility] Current [facility] PHONE: [phone] DEMARCUS BAILEY Physician C Developer Current PHONE: [phone] Jorge has no Care Guidelines for this patient. [place] VISIT COUNT (12 MO.) 6 JACKIE Barboza TOTAL 6 NOTE: Visits indicate total known visits. ED/UCC VISIT TRACKING (12 MO.) 04/11/2025 08:08 [facility] [place] TYPE: Emergency COMPLAINT: - RT HAND INJURY 01/11/2025 12:30 [facility] TYPE: Emergency COMPLAINT: - SHORTNESS BREATH DIAGNOSES: - Allergy status to other drugs, medicaments and biological substances - Allergy status to sulfonamides - Nausea with vomiting, unspecified 01/06/2025 11:36 [facility] [place] TYPE: Emergency COMPLAINT: - NAUSEA,VOMITING DIAGNOSES: - Allergy status to analgesic agent - Allergy status to penicillin - Allergy status to sulfonamides - Migraine, unspecified, not intractable, without status migrainosus - Nausea with vomiting, unspecified - Other care home (current) drug therapy 01/05/2025 20:47 [facility] [place] TYPE: Emergency COMPLAINT: - VOMITING 09/26/2024 07:44 [facility] [place] TYPE: Emergency COMPLAINT: - VOMITING DIAGNOSES: - Allergy status to analgesic agent - Allergy status to penicillin - Allergy status to sulfonamides - Hormone replacement therapy - Nausea with vomiting, unspecified - Obstructive sleep apnea (adult) (pediatric) - Other ocean transportation intermediary (current) drug therapy - Viral intestinal infection, unspecified 09/24/2024 11:[address] [facility] [place] TYPE: Emergency COMPLAINT: - DIZZY, VOMITING DIAGNOSES: - Acute gastritis without bleeding - Allergy status to analgesic agent - Allergy status to penicillin - Allergy status to sulfonamides - Hormone replacement therapy - Other ocean transportation intermediary (current) drug therapy - Vomiting, unspecified INPATIENT VISIT TRACKING (12 MO.) No inpatient visits to display in this time frame [id number]
[2025-04-11] MEDS ORDERED: ACETAMINOPHEN 500 MG TAB PO ONE (08:45)
[2025-04-11 09:20] VITALS: BP 140/75
== END 2025-04-11 09:20 | disposition home or self-care (01) ==
LOC: ED 08:08
DX: S60.221A Contusion of right hand, initial encounter (principal); Z88.2 Allergy status to sulfonamides; Z88.8 Allergy status to other drugs, medicaments and biological substances; Z79.899 Other long term (current) drug therapy; W23.0XXA Caught, crushed, jammed, or pinched between moving objects, initial encounter
CPT/HCPCS: 73130; 99283; A9270

== ENCOUNTER 2025-05-05 07:19 | Emergency (ER) | payer OTHER ==
[~2025-05-05] VITALS: Ht 162.6 cm; Wt 122.5 kg
--- OUTSIDE RECORDS SUMMARY | 2025-05-05 07:26 | XMS ---
PreManage Notification: JENNIFER RAYMOND Security Supervisor Finishing Room Events No recent Security Events currently on file CRITERIA MET - 6 ED Visits in 6 Months - Group Notification - [facility] - 2 Visits in 30 Days CARE PROVIDERS -, [facility] Dentist: Senior Accountant Analyst Current [place] PHONE: [phone] -Emily- Dentist: Senior Accountant Analyst Current [facility] PHONE: [phone] [facility]: [facility] FAMILY PHONE: [phone] DEMARCUS BAILEY Physician Admeasurer Current PHONE: [phone] Jorge has no Care Guidelines for this patient. [place] VISIT COUNT (12 MO.) 8 JACKIE Barboza TOTAL 8 NOTE: Visits indicate total known visits. ED/UCC VISIT TRACKING (12 MO.) 05/05/2025 07:20 [facility] [place] TYPE: Emergency COMPLAINT: - VOMITTING 05/03/2025 14:[address] [facility] [place] TYPE: Emergency COMPLAINT: - FLU SYMPTOMS 04/11/2025 08:[address] [facility] [place] TYPE: Emergency COMPLAINT: - RT HAND INJURY DIAGNOSES: - Allergy status to other drugs, medicaments and biological substances - Allergy status to sulfonamides - Caught, crushed, jammed, or pinched between moving objects, initial encounter - Contusion of right hand, initial encounter - Other parts counterman (current) drug therapy 01/11/2025 12:[address] [facility] [place] TYPE: Emergency COMPLAINT: - SHORTNESS BREATH DIAGNOSES: - Allergy status to other drugs, medicaments and biological substances - Allergy status to sulfonamides - Nausea with vomiting, unspecified 01/06/2025 11:[address] [facility] [place] TYPE: Emergency COMPLAINT: - NAUSEA,VOMITING DIAGNOSES: - Allergy status to analgesic agent - Allergy status to penicillin - Allergy status to sulfonamides - Migraine, unspecified, not intractable, without status migrainosus - Nausea with vomiting, unspecified - Other intermediate (current) drug therapy 01/05/2025 20:[address] [facility] [place] TYPE: Emergency COMPLAINT: - VOMITING 09/26/2024 07:[address] [facility] [place] TYPE: Emergency COMPLAINT: - VOMITING DIAGNOSES: - Allergy status to analgesic agent - Allergy status to penicillin - Allergy status to sulfonamides - Hormone replacement therapy - Nausea with vomiting, unspecified - Obstructive sleep apnea (adult) (pediatric) - Other parts counterman (current) drug therapy - Viral intestinal infection, unspecified 09/24/2024 11:15 [facility] [place] TYPE: Emergency COMPLAINT: - DIZZY, VOMITING DIAGNOSES: - Acute gastritis without bleeding - Allergy status to analgesic agent - Allergy status to penicillin - Allergy status to sulfonamides - Hormone replacement therapy - Other parts counterman (current) drug therapy - Vomiting, unspecified INPATIENT VISIT TRACKING (12 MO.) No inpatient visits to display in this time frame [id number]
[2025-05-05] MEDS ORDERED: OMEPRAZOLE40 MG PO (07:32)
[2025-05-05 07:43] LABS: BASOPHILS 0.4 % (0.1-1.2); EOSINOPHILS 0.5 % (0.7-5.8); LYMPHOCYTES 21.9 % (19.3-51.7); MCH 31.9 PG (25.6-32.2); MCHC 35.9 g/dL (32.2-35.5); MCV 88.9 fL (79.4-94.8); MONOCYTES 7.1 % (4.7-12.5); NEUTROPHILS 69.8 % (34.0-71.1); RBC 4.61 M/uL (3.93-5.22)
[2025-05-05] MEDS ORDERED: SODIUM CHLORIDE 0.9% 500 ML IV ONE (07:45)
[2025-05-05 07:58] LABS: ALT (SGPT) 34.0 U/L (14-59); AST (SGOT) 24.0 U/L (15-37); GLOMERULAR FILTRATION RATE,EST 73.0 mL/min (>60); PROTEIN, TOTAL 7.8 g/dL (6.4-8.2); UREA NITROGEN 18.0 mg/dL (7-18)
[2025-05-05 08:54] LABS: BLOOD/HGB, URINE SMALL (Negative); KETONE, URINE >=80 (Negative); LEUK ESTERASE, URINE NEGATIVE (negative); NITRITE, URINE NEGATIVE (negative)
[2025-05-05 09:00] LABS: EPITHELIAL CELLS, URINE SQUAMOUS 2+ /lpf (0-1+)
[2025-05-05 09:01] LABS: BACTERIA, URINE 2+ /hpf (negative); CASTS, URINE NONE SEEN \\lpf; CRYSTALS, URINE NONE SEEN (0-1+); REFLEX CULTURE, URINE No (No)
[2025-05-05] MEDS ORDERED: ONDANSETRON ODT4 MG PO (09:03)
[2025-05-05 09:10] VITALS: BP 149/72
== END 2025-05-05 09:10 | disposition home or self-care (01) ==
LOC: ED 07:19
PROVIDERS: Emergency Medicine
DX: R11.2 Nausea with vomiting, unspecified (principal); Z59.89 Other problems related to housing and economic circumstances; Z88.2 Allergy status to sulfonamides; Z88.1 Allergy status to other antibiotic agents; Z79.899 Other long term (current) drug therapy
CPT/HCPCS: 36415; 80053; 81001; 83735; 84703; 85025; 96374; 96375; 99284-25; J1790; J2405; J7040

== ENCOUNTER 2025-05-07 04:34 | Emergency (ER) | payer OTHER ==
[~2025-05-07] VITALS: Ht 162.6 cm; Wt 122.7 kg
[~2025-05-07 04:34] MED LIST changes: +OMEPRAZOLE40 MG PO
--- OUTSIDE RECORDS SUMMARY | 2025-05-07 04:41 | XMS ---
PreManage Notification: JENNIFER RAYMOND Security Brand Executive Events No recent Security Events currently on file CRITERIA MET - 6 ED Visits in 6 Months - Group Notification - [facility] - 2 Visits in 30 Days CARE PROVIDERS -, [facility] Dentist: Lead Laying And Gluing Machine Operator Current [place] PHONE: [phone] -Emily- Dentist: Lead Laying And Gluing Machine Operator Current [facility] PHONE: [phone] [facility]: [facility] FAMILY PHONE: [phone] DEMARCUS BAILEY Physician Otter Trawler Boatswain Current PHONE: [phone] Jorge has no Care Guidelines for this patient. [place] VISIT COUNT (12 MO.) 9 JACKIE Barboza TOTAL 9 NOTE: Visits indicate total known visits. ED/UCC VISIT TRACKING (12 MO.) 05/07/2025 04:34 [facility] [place] TYPE: Emergency COMPLAINT: - VOMITING 05/05/2025 07:20 [facility] [place] TYPE: Emergency COMPLAINT: - VOMITTING 05/03/2025 14:58 [facility] [place] TYPE: Emergency COMPLAINT: - FLU SYMPTOMS 04/11/2025 08:08 [facility] [place] TYPE: Emergency COMPLAINT: - RT HAND INJURY DIAGNOSES: - Allergy status to other drugs, medicaments and biological substances - Allergy status to sulfonamides - Caught, crushed, jammed, or pinched between moving objects, initial encounter - Contusion of right hand, initial encounter - [facility] [place] [facility] drug therapy 01/11/2025 12:30 [facility] [place] TYPE: Emergency [...] - Nausea with vomiting, unspecified - [facility] [place] [facility] drug therapy 01/05/2025 20:47 [facility] [place] TYPE: Emergency COMPLAINT: - VOMITING 09/26/2024 07:44 [facility] [place] TYPE: Emergency COMPLAINT: - VOMITING DIAGNOSES: - Allergy status to analgesic agent - Allergy status to penicillin - Allergy status to sulfonamides - Hormone replacement therapy - Nausea with vomiting, unspecified - Obstructive sleep apnea (adult) (pediatric) - Other [place] [facility] ([facility] drug therapy - Viral intestinal infection, unspecified 09/24/2024 11:15 [facility] [place] TYPE: Emergency COMPLAINT: - DIZZY, VOMITING DIAGNOSES: - Acute gastritis without bleeding - Allergy status to analgesic agent - Allergy status to penicillin - Allergy status to sulfonamides - Hormone replacement therapy - Other [place] [facility] (current[facility] drug therapy - Vomiting, unspecified INPATIENT VISIT TRACKING (12 MO.) No inpatient visits to display in this time frame [id number]
[2025-05-07 04:56] LABS: BASOPHILS 0.3 % (0.1-1.2); EOSINOPHILS 0.3 % (0.7-5.8); LYMPHOCYTES 14.7 % (19.3-51.7); MCH 31.9 PG (25.6-32.2); MCHC 35.9 g/dL (32.2-35.5); MCV 88.9 fL (79.4-94.8); MONOCYTES 5.1 % (4.7-12.5); NEUTROPHILS 79.3 % (34.0-71.1); RBC 4.58 M/uL (3.93-5.22)
[2025-05-07] MEDS ORDERED: MORPHINE SULFATE 4 MG/ML VIAL IV ONE (05:00)
[2025-05-07] MEDS ORDERED: SODIUM CHLORIDE 0.9% 500 ML IV PRN (05:00)
[2025-05-07 05:08] LABS: ALT (SGPT) 15.0 U/L (14-59); AST (SGOT) 17.0 U/L (15-37); GLOMERULAR FILTRATION RATE,EST 84.0 mL/min (>60); PROTEIN, TOTAL 7.5 g/dL (6.4-8.2); UREA NITROGEN 14.0 mg/dL (7-18)
[2025-05-07 05:49] LABS: BLOOD/HGB, URINE TRACE-L (Negative); KETONE, URINE TRACE (Negative); LEUK ESTERASE, URINE NEGATIVE (negative); NITRITE, URINE NEGATIVE (negative)
[2025-05-07] MEDS ORDERED: HYDROCODONE BIT/ACETAMINOPHEN 5/325 MG 1 TAB HOME.PACK PO ONE (06:00)
[2025-05-07] MEDS ORDERED: PROMETHAZINE HCL 25 MG SUPP. HOME.PACK PR ONE (06:00)
[2025-05-07] MEDS ORDERED: SUCRALFATE 1 GM TAB PO ONE (06:00)
[2025-05-07] MEDS ORDERED: LIDOCAINE & ANTACID 35 ML BTL PO ONE (06:00)
[2025-05-07] MEDS ORDERED: PANTOPRAZOLE SODIUM 40 MG/10 ML VIAL IV ONE (06:00)
[2025-05-07] MEDS ORDERED: ONDANSETRON 4 MG HOME.PACK SL ONE (06:00)
[2025-05-07] MEDS ORDERED: ONDANSETRON ODT8 MG PO (06:02)
[2025-05-07] MEDS ORDERED: CARAFATE1 GM PO (06:02)
[2025-05-07] MEDS ORDERED: PROMETHEGAN25 MG PR (06:02)
[2025-05-07 06:03] LABS: BACTERIA, URINE 1+ /hpf (negative); CASTS, URINE NONE SEEN \\lpf; CRYSTALS, URINE AMORPHOUS PHOSPH 3+ (0-1+); EPITHELIAL CELLS, URINE SQUAMOUS 2+ /lpf (0-1+); REFLEX CULTURE, URINE No (No)
[2025-05-07 06:38] VITALS: BP 144/89
== END 2025-05-07 06:38 | disposition home or self-care (01) ==
LOC: ED 04:34
PROVIDERS: Internal Medicine
DX: R10.13 Epigastric pain (principal); G43.909 Migraine, unspecified, not intractable, without status migrainosus; Z79.899 Other long term (current) drug therapy; Z88.2 Allergy status to sulfonamides; Z88.0 Allergy status to penicillin; Z88.6 Allergy status to analgesic agent
CPT/HCPCS: 36415; 74177; 80048; 80053; 81001; 83690; 83735; 84703; 85025; 96361; 96374; 96375; 99284-25; A9270; J1790; J2270; J2405; J2470; J7040; Q9967

== ENCOUNTER 2025-06-05 09:33 | Day surgery (SDC) | payer OTHER ==
[~2025-06-05] VITALS: Ht 162.6 cm; Wt 123.0 kg
[~2025-06-05 09:33] MED LIST changes: +CARAFATE1 GM PO; +IBLOOD GLUCOSE TEST STRIP 1 EA TEST VI PRN; +LACTATED RINGER'S 1,000 ML IV SCH; +LIDOCAINE HCL 1% 5 ML SDV INJ ONE; +PROMETHEGAN25 MG PR
[2025-06-05 09:38] VITALS: BP 143/85
[2025-06-05] MEDS ORDERED: LIDOCAINE HCL 2% 5 ML SDV ONE (10:43)
--- NOTE | 2025-06-05 11:35 | NUR ---
06/05/25 1135 Toma Nielsen 1120-PATIENT ARRIVED TO PACU ON 6L NC RR EVEN NONAROUSABLE ORAL AIRWAY IN PLACE. PATIENT LAYING LEFT LATERAL IVF INFUSING. SR HR 60'S ABDOMEN SOFT 1122-PATIENT AROUSING ORAL AIRWAY REMOVED PLACED ON 4L NC RR EVEN HOB ELEVATED A LITTLE. PATIENT VERY DROWSY. ORIENTED TO PACU 1125-PATIENT NAUSEATED HOB ELEVATED EMESIS BAG GIVEN. NEW ORDER FROM RA[facility]UL JU[facility] FOR 4MG ZOFRAN IVP 1127-PATIENT MEDICATED WITH 4MG ZOFRAN IVP IVF INFUSING. ENCOURAGED TO REST RA 99% RR EVEN 1133-DR. ORTEGA AT BEDSIDE TALKING TO PATIENT. PATIENT REQUESTING WARM BLANKET. IVF INFUSING. REPORTS "NAUSEA GETTING BETTER"
[2025-06-05 12:04] VITALS: BP 143/85
[2025-06-25] MEDS ORDERED: ONDANSETRON ODT8 MG PO (09:10)
== END 2025-06-05 12:10 | disposition home or self-care (01) ==
LOC: DS 09:33
PROVIDERS: ATTEND Surgery
PROC: 0DB68ZX Excision of Stomach, Via Natural or Artificial Opening Endoscopic, Diagnostic (ICD-10-PCS; 2025-06-05)
PROC: 0DBC8ZX Excision of Ileocecal Valve, Via Natural or Artificial Opening Endoscopic, Diagnostic (ICD-10-PCS; principal; 2025-06-05 10:30)
PROC: 0DBN8ZX Excision of Sigmoid Colon, Via Natural or Artificial Opening Endoscopic, Diagnostic (ICD-10-PCS; 2025-06-05 10:30)
DX: R10.30 Lower abdominal pain, unspecified (principal); K29.70 Gastritis, unspecified, without bleeding; K29.80 Duodenitis without bleeding; K64.8 Other hemorrhoids; Z88.2 Allergy status to sulfonamides; Z88.1 Allergy status to other antibiotic agents; Z88.8 Allergy status to other drugs, medicaments and biological substances
CPT/HCPCS: 00813; 88305; J2003; J2405; J2704; J7121